=== PATIENT | female | born 1955 | race Native Hawaiian/Other Pacific Islander ===

== ENCOUNTER → 2021-11-22 17:23 | Outpatient (CLI) | payer OTHER, SELFPAY | PROVIDERS: PCP Internal Medicine; Referring Provider Obstetrics & Gynecology; Visit Provider Obstetrics & Gynecology | DX: N72 Inflammatory disease of cervix uteri (principal); N95.1 Menopausal and female climacteric states | CPT/HCPCS: 87070; 87077; 87186; 87205 ==

== ENCOUNTER → 2021-12-31 14:31 | Outpatient (CLI) | payer OTHER, SELFPAY ==
[2022-01-03 17:16] LABS: Candida species Negative (Negative); Gardnerella vaginalis Negative (Negative); Trichomoas vaginalis Negative (Negative)
== END ==
PROVIDERS: PCP Internal Medicine; Visit Provider Obstetrics & Gynecology
DX: N89.8 Other specified noninflammatory disorders of vagina (principal)
CPT/HCPCS: 87070; 87147; 87205; 87480; 87510; 87660